=== PATIENT | female | born 1955 | race Caucasian/White ===

== ENCOUNTER 2018-01-30 12:21 | Outpatient (CLI) | payer OTHER ==
[2018-01-30 13:31] LABS: BILIRUBIN,URINE NEGATIVE (NEGATIVE); BLOOD, URINE 1+ (NEGATIVE); CLARITY/URINE SL HAZY (CLEAR); COLOR,URINE YELLOW (YELLOW); GLUCOSE,URINE NEGATIVE (NEGATIVE); KETONES,URINE 1+ (NEGATIVE); LEUKOCYTE ESTERASE ,URINE NEGATIVE (NEGATIVE); NITRITE, URINE NEGATIVE (NEGATIVE); PROTEIN URINE NEGATIVE (NEGATIVE); UROBILINOGEN,URINE 0.2 (0.2-1.0)
[2018-01-30 13:32] LABS: BASOPHILS % (AUTO) 0.8 % (0.0-2.0); EOSINOPHILS # (AUTO) 0.2 K/uL (0.0-0.4); HEMATOCRIT 39.7 % (36-48); HEMOGLOBIN 13.1 g/dL (12.0-16.0); LYMPHOCYTES # (AUTO) 1.9 K/uL (1.0-5.5); LYMPHOCYTES % (AUTO) 33.8 % (20.5-51.5); MEAN CORPUSCULAR HEMOGLOBIN 30 pg (27-31); MEAN CORPUSCULAR HGB CONC 33 % (32-36); MEAN CORPUSCULAR VOLUME 91 fL (79.0-98.0); MONOCYTES # (AUTO) 0.4 K/uL (0.0-1.0); MONOCYTES % (AUTO) 6.8 % (1.7-9.3); NEUTROPHILS # (AUTO) 3.1 K/uL (1.8-7.7); NEUTROPHILS % (AUTO) 55.6 % (40.0-70.0); PLATELET COUNT (AUTO) 280 K/uL (130-430); RED BLOOD CELL COUNT(AUTO) 4.35 MIL/uL (4.2-6.2); RED CELL DISTRIBUTION WIDTH 11.9 % (9.0-15.0); WHITE BLOOD COUNT (AUTO) 5.6 K/uL (4.8-10.8)
[2018-01-30 13:56] LABS: BACTERIA,URINE FEW /HPF (None Seen); MUCUS,URINE 2+ /LPF (None Seen); WBC,URINE 0-3 /HPF (0-3)
[2018-01-30 14:01] LABS: ALBUMIN 3.5 g/dL (3.4-4.8); CALCIUM 8.6 mg/dL (8.4-11.0); CREATININE 0.68 mg/dL (0.55-1.30); POTASSIUM 4.3 mmol/L (3.5-5.1); THYROID STIMULATING HORMONE 2.07 uIu/mL (0.34-4.82); TOTAL BILIRUBIN 0.3 mg/dL (0.0-1.0)
[2018-02-01 07:38] LABS: HEMOGLOBIN A1C 5.7 % (4.8-5.6)
== END 2018-01-30 20:23 | disposition home or self-care (01) ==
LOC: SLB 12:21
DX: Z12.11 Encounter for screening for malignant neoplasm of colon (principal); Z13.228 Encounter for screening for other metabolic disorders; Z13.0 Encounter for screening for diseases of the blood and blood-forming organs and certain disorders involving the immune mechanism; Z13.220 Encounter for screening for lipoid disorders; Z13.29 Encounter for screening for other suspected endocrine disorder
CPT/HCPCS: 36415; 80053; 80061; 81000-TC; 82272; 82306; 83036; 84443-TC; 85025

== ENCOUNTER 2018-08-26 11:44 | Outpatient (CLI) | payer OTHER ==
[2018-08-26 13:04] LABS: BILIRUBIN,URINE NEGATIVE (NEGATIVE); BLOOD, URINE 2+ (NEGATIVE); CLARITY/URINE CLEAR (CLEAR); COLOR,URINE YELLOW (YELLOW); GLUCOSE,URINE NEGATIVE (NEGATIVE); KETONES,URINE NEGATIVE (NEGATIVE); LEUKOCYTE ESTERASE ,URINE NEGATIVE (NEGATIVE); NITRITE, URINE NEGATIVE (NEGATIVE); PROTEIN URINE NEGATIVE (NEGATIVE); UROBILINOGEN,URINE 0.2 (0.2-1.0)
[2018-08-26 13:17] LABS: BACTERIA,URINE FEW /HPF (None Seen); MUCUS,URINE None Seen /LPF (None Seen); RBC,URINE 0-3 /HPF (0-3); WBC,URINE 0-3 /HPF (0-3)
[2018-08-27 04:18] LABS: HEMOGLOBIN A1C 5.4 % (4.8-5.6)
[2018-08-27 08:16] LABS: RA LATEX TURBID 11.6 IU/mL (0.0-13.9)
== END 2018-08-26 21:00 | disposition home or self-care (01) ==
LOC: SRD 11:44
PROVIDERS: ATTEND Family Medicine
DX: M47.812 Spondylosis without myelopathy or radiculopathy, cervical region (principal); M41.86 Other forms of scoliosis, lumbar region; M48.061 Spinal stenosis, lumbar region without neurogenic claudication; M25.561 Pain in right knee; M48.02 Spinal stenosis, cervical region; R15.9 Full incontinence of feces; M25.512 Pain in left shoulder; M25.511 Pain in right shoulder; R31.9 Hematuria, unspecified; R73.09 Other abnormal glucose
CPT/HCPCS: 36415; 72040-TC; 72110; 73560-TC; 81000-TC; 83036; 85651-TC; 86140; 86431; 87177

== ENCOUNTER 2021-06-13 13:49 | Outpatient (CLI) | payer OTHER | END 2021-06-13 19:44 | disposition home or self-care (01) | LOC: SMA 13:49 | PROVIDERS: ATTEND Family Medicine | DX: Z12.31 Encounter for screening mammogram for malignant neoplasm of breast (principal) | CPT/HCPCS: 77067 ==

== ENCOUNTER 2021-07-12 06:25 | Day surgery (SDC) | payer OTHER, SELFPAY ==
[~2021-07-12] VITALS: Ht 157.5 cm; Wt 52.2 kg
[2021-07-12] MEDS ORDERED: SIMETHICONE 40 MG/0.6 ML ML ONE (06:34)
[2021-07-12] MEDS ORDERED: MIDAZOLAM HCL 5 MG/5 ML VIAL ONE (06:53)
[2021-07-12] MEDS ORDERED: DIPHENHYDRAMINE INJ 50 MG/ML VIAL ONE (06:53)
[2021-07-12] MEDS: MIDAZOLAM HCL 5 MG/5 ML VIAL ONE ×3 (07:14→07:18)
[2021-07-12] MEDS: MEPERIDINE 100 MG INJ. 100 MG/ML VIAL ONE ×2 (07:14→07:18)
[2021-07-15 12:31] VITALS: BP_SYST 117
== END 2021-07-12 09:20 | disposition home or self-care (01) ==
LOC: SDS 06:25 → SMU 06:26 → SDS 09:20
PROVIDERS: ATTEND Internal Medicine Gastroenterology
DX: R10.13 Epigastric pain (principal); K29.50 Unspecified chronic gastritis without bleeding; R14.0 Abdominal distension (gaseous); R10.9 Unspecified abdominal pain; Z20.822 Contact with and (suspected) exposure to COVID-19; Z86.010 Personal history of colon polyps; Z90.710 Acquired absence of both cervix and uterus; Z79.899 Other long term (current) drug therapy
CPT/HCPCS: 36415; 43239; 87081; 88305; 88312; 88313; 99152; G0378; J2175; J2250; U0003; J1200

== ENCOUNTER 2021-10-08 08:11 | Outpatient (CLI) | payer OTHER, SELFPAY | END 2021-10-08 20:17 | disposition home or self-care (01) | LOC: SUS 08:11 | PROVIDERS: ATTEND Internal Medicine | DX: R14.0 Abdominal distension (gaseous) (principal) | CPT/HCPCS: 76700-TC ==